=== PATIENT | female | born 2000 | race Caucasian/White ===

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

== ENCOUNTER 2022-04-24 15:55 | Emergency (ER) | payer BC, MEDICAID ==
[~2022-04-24] VITALS: Ht 152.4 cm; Wt 45.5 kg
[2022-04-24 16:04] VITALS: TEMP 99.3
[2022-04-24 16:44] LABS: BASO % 0.5 % (0.0-2.0); EOS # 0.6 K/mm3 (0.0-0.7); EOS % 6.8 % (0.0-4.0); GRAN # 5.2 K/mm3 (1.4-6.5); GRAN % 64.1 % (42.2-75.2); HEMATOCRIT 41.4 % (35.0-45.0); HEMOGLOBIN 14.1 g/dl (12.0-15.0); LYMPH # 1.8 K/mm3 (1.2-3.4); LYMPH % 22.6 % (20.0-51.0); MEAN CELL VOLUME 86 fl (80.0-95.0); MEAN CORPUSCULAR HEMOGLOBIN 29 pg (26-32); MEAN CORPUSCULAR HGB CONC 34 g/dl (33.0-37.0); MEAN PLATELET VOLUME 8.7 fl (7.4-10.4); MONO # 0.5 K/mm3 (0.1-0.6); MONO % 5.9 % (1.7-9.3); PLATELET COUNT 315 K/mm3 (130-400); RED BLOOD COUNT 4.81 M/mm3 (4.10-5.30); REDCELL DISTRIBUTION WIDTH-CV 12.9 % (11.5-14.5)
[2022-04-24 16:49] LABS: COLLECTION METHOD CLEAN CATCH
[2022-04-24 16:57] LABS: PH 8 (5-8); SQUAMOUS EPITHELIAL 0-2 /hpf (0-10); URINE APPEARANCE Clear (CLEAR/HAZY); URINE BACTERIA Rare /hpf (NONE SEEN); URINE BLOOD 1+ (NEGATIVE); URINE COLOR Straw (YELLOW); URINE GLUCOSE Negative (NEGATIVE); URINE KETONE Negative (NEGATIVE); URINE NITRATE Negative (NEGATIVE); URINE PROTEIN(semi-quant) Negative (NEGATIVE); URINE RBC 0-2 /hpf (0-2); URINE UROBILINOGEN Negative (NEGATIVE)
[2022-04-24 17:00] LABS: ALBUMIN 4.5 gm/dL (3.5-5.0); BILIRUBIN,TOTAL 0.6 mg/dL (0.2-1.2); CALCIUM 9.4 mg/dL (8.4-10.2); CREATININE, serum 0.75 mg/dL (0.57-1.11); POTASSIUM 3.9 mmol/L (3.5-4.5); TOTAL PROTEIN 7.2 gm/dL (6.2-8.1)
[2022-04-24 18:03] VITALS: BP 109/69; PULSE 69
== END 2022-04-24 18:03 | disposition home or self-care (01) ==
LOC: COL.ER 15:55
PROVIDERS: Nurse Practitioner
DX: N92.0 Excessive and frequent menstruation with regular cycle (principal); Z32.02 Encounter for pregnancy test, result negative; Z28.310 Unvaccinated for COVID-19

== ENCOUNTER 2023-09-24 18:26 | Emergency (ER) | payer BC ==
[~2023-09-24] VITALS: Ht 152.4 cm; Wt 54.5 kg
[2023-09-24 18:32] VITALS: TEMP 98.1
[2023-09-24 18:51] LABS: COLLECTION METHOD CLEAN CATCH
[2023-09-24 18:57] LABS: BASO % 0.3 % (0.0-2.0); EOS # 0.3 K/mm3 (0.0-0.7); EOS % 4.3 % (0.0-4.0); GRAN # 6.6 K/mm3 (1.4-6.5); GRAN % 84.1 % (42.2-75.2); HEMATOCRIT 43.8 % (37.0-47.0); HEMOGLOBIN 15.1 g/dl (12.5-16.0); LYMPH # 0.6 K/mm3 (1.2-3.4); LYMPH % 7.2 % (20.0-51.0); MEAN CELL VOLUME 87 fl (80.0-100.0); MEAN CORPUSCULAR HEMOGLOBIN 30 pg (27-31); MEAN CORPUSCULAR HGB CONC 35 g/dl (33.0-37.0); MEAN PLATELET VOLUME 8.6 fl (7.4-10.4); MONO # 0.3 K/mm3 (0.1-0.6); PLATELET COUNT 275 K/mm3 (130-400); RED BLOOD COUNT 5.05 M/mm3 (4.10-5.30)
[2023-09-24 19:00] LABS: URINE APPEARANCE Clear (CLEAR/HAZY); URINE COLOR Yellow (YELLOW)
[2023-09-24 19:01] LABS: URINE BLOOD Negative (NEGATIVE); URINE GLUCOSE Negative (NEGATIVE); URINE KETONE Negative (NEGATIVE); URINE NITRATE Negative (NEGATIVE); URINE PROTEIN(semi-quant) Negative (NEGATIVE); URINE UROBILINOGEN 0.2 E.U/dL (0.2-1.0)
[2023-09-24 19:14] LABS: ALBUMIN 4.5 gm/dL (3.5-5.0); C-REACTIVE PROTEIN 0.14 mg/dL (0.00-0.50); CALCIUM 9.2 mg/dL (8.4-10.2); CREATININE, serum 0.7 mg/dL (0.57-1.11); POTASSIUM 3.9 mmol/L (3.5-4.5); TOTAL PROTEIN 7.2 gm/dL (6.2-8.1)
[2023-09-24 19:37] LABS: SQUAMOUS EPITHELIAL 0-2 /hpf (0-10); URINE BACTERIA None Seen /hpf (NONE SEEN); URINE RBC 0-2 /hpf (0-2)
[2023-09-24] MEDS ORDERED: PROTONIX 40MG T40 MG PO (19:52)
[2023-09-24 20:05] VITALS: BP 102/69; PULSE 100
== END 2023-09-24 20:05 | disposition home or self-care (01) ==
LOC: COL.ER 18:26
PROVIDERS: Nurse Practitioner Primary Care
DX: R10.9 Unspecified abdominal pain (principal); R11.2 Nausea with vomiting, unspecified
CPT/HCPCS: J2405; J7030